=== PATIENT | male | born 1980 | race Two or more races ===

== ENCOUNTER 2024-04-18 14:38 | Emergency (ER) | payer OTHER ==
[~2024-04-18] VITALS: Ht 182.9 cm; Wt 104.3 kg
[2024-04-18] MEDS ORDERED: 0.9 % SODIUM CHLORIDE 1,000 ML IV STA ×2 (15:45→16:24)
[2024-04-18 16:39] LABS: HEMATOCRIT 43.9 % (39.0-48.0); HEMOGLOBIN 14.9 g/dL (13-16.00); MEAN CELL VOLUME 87.4 fL (80.0-100.00); MEAN CORPUSCULAR HEMOGLOBIN 29.6 pg (27.00-32.0); MEAN CORPUSCULAR HGB CONC 33.8 g/dl (32.0-36.0); PLATELET COUNT 246 K/uL (150-450); RED BLOOD COUNT 5.03 M/uL (4.00-6.00); RED CELL DISTRIBUTION WIDTH 13.1 % (11.5-14.5)
[2024-04-18 16:53] LABS: PH,URINE 5.5 (5.0-8.0); URINE APPEARANCE Cloudy; URINE BILIRRUBIN Negative (NEGATIVE); URINE BLOOD Large; URINE COLOR Yellow; URINE GLUCOSE Negative (NEGATIVE); URINE LEUKOCYTE Negative; URINE NITRATE Negative; URINE UROBILINOGEN 0.2 E.U./dl
[2024-04-18 16:56] LABS: URINE BACTERIA 39.1 uL (0.0-1933); URINE CAST 2.65 uL (0.0-1.40); URINE RBC 229.6 uL (0.0-20.8); URINE WBC 36.8 uL (0.0-23.2)
[2024-04-18 17:27] LABS: ALBUMIN 3.8 gm/dL (3.4-5.0); BILIRUBIN TOTAL 1.04 mg/dL (0.3-1.2); CREATININE SERUM 1.51 mg/dL (0.70-1.30); GFR 50.22; GLOBULINA 4.1 G/DL (2.4-3.5); POTASSIUM 3.64 mEq/L (3.5-5.1); TOTAL PROTEIN 7.9 gm/dL (6.4-8.2)
[2024-04-18 17:28] LABS: INR 1.03; PARTIAL THROMBOPLASTIN TIME 23.4 SECONDS (22.0-34.0); PROTHROMBIN TIME 11.2 SECONDS (9.0-11.5)
[2024-04-18 17:34] LABS: URINE KETONE 40 (NEGATIVE); URINE PROTEIN 300 (NEGATIVE)
[2024-04-18 18:02] LABS: COCAINE NEGATIVE (NEGATIVE); METHADONE NEGATIVE (NEGATIVE); OPIATES NEGATIVE (NEGATIVE); THC ( Cannabinoids) POSITIVE (NEGATIVE)
[2024-04-18] MEDS ORDERED: DIPHENHYDRAMINE HCL 50 MG/ML VIAL 1ML IV ONE ×2 (18:45→23:30)
[2024-04-18] MEDS ORDERED: HALOPERIDOL LACTATE 5 MG/ML AMPUL IV ONE ×2 (18:45→23:30)
[2024-04-18] MEDS ORDERED: PROPOFOL 10,000 MCG/ML VIAL IV ONE (21:15)
[2024-04-18] MEDS ORDERED: LevETIRAcetam 500 MG/5 ML VIAL IV ONE (23:00)
[2024-04-18] MEDS ORDERED: HALOPERIDOL LACTATE 2 MG/ML ML PO ONE (23:30)
[2024-04-19 00:48] VITALS: BP 162/95; O2SAT 100
== END 2024-04-19 01:16 | disposition designated cancer center or children's hospital (05) ==
LOC: ER 14:40
PROVIDERS: Emergency Medicine
DX: S00.83XA Contusion of other part of head, initial encounter (principal); X58.XXXA Exposure to other specified factors, initial encounter; Y93.89 Activity, other specified; Y92.89 Other specified places as the place of occurrence of the external cause; R58 Hemorrhage, not elsewhere classified